=== PATIENT | female | born 1965 | race Caucasian/White ===

== ENCOUNTER → 2019-05-25 | Outpatient (CLI) | payer BC ==
--- NOTE | 2019-05-25 15:47 | Diagnostic Imaging Report ---
PROCEDURE: CT abdomen and pelvis without contrast. TECHNIQUE: Multiple contiguous axial images were obtained through the abdomen and pelvis without the use of intravenous contrast. Auto Exposure Controls were utilized during the CT exam to meet ALARA standards for radiation dose reduction. INDICATION: Abdominal pain and hematuria with right groin pain. COMPARISON: No prior CT studies are available for comparison. FINDINGS: The lung bases are clear. Liver and gallbladder are unremarkable. No biliary ductal dilatation is seen. The pancreas and spleen are unremarkable. No adrenal mass is detected. No definite renal calculi are seen. There is no hydronephrosis. No definite ureteral or bladder calculi are seen. Aorta is calcified but nonaneurysmal. The small and large bowel loops are normal caliber. There is no obstruction. There is no free fluid or fluid collection. No inflammatory changes are identified. The bony structures appear nonacute. IMPRESSION: Unremarkable noncontrast CT of the abdomen and pelvis. No definite urinary tract calculus or obstruction is identified. Dictated by: Dictated on workstation # [id number]
== END ==
LOC: RAD 14:57
PROVIDERS: ATTEND Urology
DX: R31.9 Hematuria, unspecified (principal); R10.31 Right lower quadrant pain
CPT/HCPCS: 74176

== ENCOUNTER → 2020-03-26 | Outpatient (CLI) | payer BC ==
--- NOTE | 2020-03-26 14:47 | Diagnostic Imaging Report ---
INDICATION: Knee pain. FINDINGS: There is abnormal lucency demonstrated within the proximal aspect of the tibia compatible with the tibial plateau fracture. This appears to involve the lateral tibial plateau and lateral tibial spine with the lucent lesion which is also demonstrated crossing more medially within the proximal tibia. There is no distal femoral fracture. There is a moderate knee joint effusion. No lipohemarthrosis evident. IMPRESSION: Apparent proximal right tibial plateau fracture with fracture lines involving the lateral tibial plateau, deep to the lateral tibial spine, and a fracture line which appears to cross midline within the proximal tibia. There is no significant depression evident at this time. There is a moderate right knee joint effusion. Dictated by: Dictated on workstation # [id number]
== END ==
LOC: RAD 12:36
PROVIDERS: ATTEND Family Medicine
DX: M79.604 Pain in right leg (principal); M25.561 Pain in right knee; M25.461 Effusion, right knee
CPT/HCPCS: 73562